=== PATIENT | female | born 1940 | race Caucasian/White ===

== ENCOUNTER 2022-07-03 20:37 | Emergency (ER) | payer BC ==
[~2022-07-03] VITALS: Ht 162.6 cm; Wt 55.8 kg
[2022-07-03] MEDS: MAGNESIUM SULFATE/D5W 100 ML IV SCH ×2 (00:05→23:00)
--- NOTE | 2022-07-03 20:40 | NUR ---
Patient bib RA 83 d/t Daughter (Quynh Kothari) and PCP requesting that her living arrangement care team transfer to an ER. RA 83 stated that the patient had a x-ray done yesterday. Today the PCP reviewed the results which showed that the patient has fluid in her luns; therefore, she must be sent to the ER. The patient was placed in room 4A. NAD noted. O2 sat 96% on room air, unlabored breathing, responsive to staff.
--- NOTE | 2022-07-03 20:56 | NUR ---
Patient provided a cup of water, Dr. Alvarez approved.
--- NOTE | 2022-07-03 20:58 | NUR ---
Contacted patient's [facility] and was given her PCP's #. Dr. Jacobs
[2022-07-03 21:31] LABS: HEMATOCRIT 35.2 % (31.2-41.9); MEAN CORPUSCULAR VOLUME 94.2 fL (75.5-95.3); PLATELET COUNT (AUTO) 315 K/uL (179-408)
[2022-07-03 21:51] LABS: CARBON DIOXIDE 27 mmol/L (21-32); CHLORIDE 98 mmol/L (98-107); CREATININE 2.1 mg/dL (0.6-1.3); GLUCOSE 100 mg/dL (74-106); POTASSIUM 3.9 mmol/L (3.5-5.1); UREA NITROGEN, BLOOD 70 mg/dL (7-18)
--- NOTE | 2022-07-03 21:55 | NUR ---
Urine specimen sent to the lab.
[2022-07-03 22:05] LABS: MAGNESIUM 1.7 mg/dL (1.8-2.4)
[2022-07-03] MEDS ORDERED: IV NS 1000 ML 1,000 ML IV ONE ×2 (22:15)
[2022-07-03 22:22] LABS: *BILIRUBIN,URIN NEGATIVE (NEGATIVE); *BLOOD, URINE 2+ (NEGATIVE); *CLARITY,URINE CLEAR (CLEAR); *COLOR,URINE YELLOW (YELLOW); *KETONES,URINE NEGATIVE (NEGATIVE); *UROBILINOGEN,URINE 0.2 E.U./dl (NORMAL); LEUKOCYTE ESTERASE ,URINE 3+ (NEGATIVE); NITRITE, URINE NEGATIVE (NEGATIVE); PH,URINE 7.5 (5.0-8.0); UGLUCOSE NEGATIVE (NEGATIVE)
[2022-07-03] MEDS ORDERED: MAGNESIUM SULFATE/D5W 200 ML ONE (22:45)
--- NOTE | 2022-07-03 22:55 | NUR ---
Daughter at bedside.
[2022-07-03 23:55] LABS: BACTERIA,URINE MANY /HPF (NONE SEEN); SQUAMOUS EPITHELIAL CELL,UR FEW /HPF (NONE SEEN); WBC,URINE 20-50 /HPF (0-3)
[2022-07-04] MEDS ORDERED: CEFTRIAXONE 1 G in IV DEXTROSE 5% 50 ML IV ONE ×2
--- NOTE | 2022-07-04 00:06 | NUR ---
Patient awake. No changes in mental status. NAD noted.
[2022-07-04] MEDS ORDERED: CEFTRIAXONE /D5W 50ML IVPB **ER PYXIS IV ONE (00:42)
[2022-07-04] MEDS ORDERED: SULF1TAB48 PO (01:37)
[2022-07-04] MEDS ORDERED: FAMC500T3 PO (01:37)
--- NOTE | 2022-07-04 02:00 | NUR ---
Patient discharged to [facility] home in stable condition with daughter ([employer]). NAD noted. All belongings with daughter. Written and verbal after care instructions given. Patient verbalizes understanding of instructions. Stressed follow up or return to ER for worsening s/s. Patient taken to car in a wheelchair.
[2022-07-04 02:38] VITALS: BP 110/67
== END 2022-07-04 02:05 ==
LOC: ER 20:37
DX: E86.0 Dehydration (principal); N39.0 Urinary tract infection, site not specified; B00.1 Herpesviral vesicular dermatitis; E83.42 Hypomagnesemia; F09 Unspecified mental disorder due to known physiological condition; F03.90 Unspecified dementia, unspecified severity, without behavioral disturbance, psychotic disturbance, mood disturbance, and anxiety; R32 Unspecified urinary incontinence; Z87.440 Personal history of urinary (tract) infections; R79.89 Other specified abnormal findings of blood chemistry
CPT/HCPCS: 99285; 96365; 71045; 96366; 80048; 81001; 82607; 83880; 83735; 85025; 84484; 36415; 93005; 96367; J3475; J7040; J0696; A4663; C1758